=== PATIENT | female | born 1945 | race African-American/Black ===

== ENCOUNTER 2023-07-19 12:22 | Emergency (ER) | payer OTHER, BC ==
[2023-07-19 12:34] VITALS: BP 117/63; PULSE 73; RESP 18; TEMP 98.8; BMI 35.4
[2023-07-19 14:52] LABS: BASO % 0.9 % (0-2.0); EOS % 5.2 % (0-4.5); HEMATOCRIT 36.3 % (32.4-45.2); HEMOGLOBIN 12.1 GM/dL (10.7-15.3); LYMPH % 33.3 % (8-40); MCH 31.6 pg (25.7-33.7); MCHC 33.5 g/dl (32.0-36.0); MEAN CELL VOLUME 94.5 fl (80-96); MEAN PLT VOLUME 7.9 fl (7.5-11.1); MONO % 11.1 % (3.8-10.2); NEUT % 49.5 % (42.8-82.8); PLATELET COUNT 269 10^3/uL (134-434); RBC 3.84 M/mm3 (3.60-5.2); WHITE BLOOD COUNT 3.4 K/mm3 (4.0-10.0)
[2023-07-19 15:08] LABS: POTASSIUM 3.9 mmol/L (3.5-5.1)
[2023-07-19 15:10] LABS: CALCIUM 9.3 mg/dL (8.5-10.1)
[2023-07-19 15:11] LABS: ALBUMIN 3.6 g/dl (3.4-5.0)
[2023-07-19 15:14] LABS: PH,URINE 5.5 (5.0-8.0); URINE APPEARANCE CLEAR; URINE BILIRUBIN NEGATIVE (NEGATIVE); URINE COLOR YELLOW; URINE GLUCOSE (UA) NEGATIVE (NEGATIVE); URINE KETONE NEGATIVE (NEGATIVE); URINE LEUK ESTERASE NEGATIVE (NEGATIVE); URINE NITRITE NEGATIVE (NEGATIVE); URINE PROTEIN NEGATIVE (NEGATIVE); URINE UROBILINOGEN 0.2 mg/dL (0.2-1.0)
[2023-07-19 15:14] LABS: BLOOD UREA NITROGEN 14.4 mg/dL (7-18); CREATININE 1.1 mg/dL (0.55-1.3)
[2023-07-19 15:16] LABS: BILIRUBIN,TOTAL 1.3 mg/dL (0.2-1)
[2023-07-19 15:42] LABS: INR 1.02 (0.83-1.09); PROTHROMBIN TIME (PATIENT) 11.8 SEC (9.7-13.0)
[2023-07-19 15:45] LABS: ACTIVATED PTT 29.3 SECONDS (25.2-36.5)
== END 2023-07-19 18:43 | disposition home or self-care (01) ==
LOC: JER 12:22
DX: K52.9 Noninfective gastroenteritis and colitis, unspecified (principal); R10.32 Left lower quadrant pain; R19.7 Diarrhea, unspecified; K92.1 Melena; R11.2 Nausea with vomiting, unspecified
CPT/HCPCS: 36415; 74177-TC; 80053; 81003; 82272; 85025; 85610; 85730; 86850; 86900; 86901; 87086; 99285-25; Q9967